=== PATIENT | female | born 1960 | race African-American/Black ===

== ENCOUNTER 2018-08-20 06:42 | Emergency (ER) | payer OTHER ==
[2018-08-20 07:13] VITALS: BP 145/85; PULSE 85; TEMP 98.4; BMI 38.2
[2018-08-20] MEDS ORDERED: IBUPROFEN 400 MG TABLET (FP) PO ONE ×2 (07:26→07:37)
--- NOTE | 2018-08-20 07:27 | PDOC ---
*Physical Exam - Vital Signs Last Vital Signs Temp Pulse Resp BP Pulse Ox 98.4 F 85 18 145/85 99 08/20/18 07:07 08/20/18 07:07 08/20/18 07:07 08/20/18 07:07 08/20/18 07:07 Medical Decision Making - Medical Decision Making 08/20/18 07:27 58 yo F presenting with wrist pain No swelling No erythema Able to move wrist, but with pain no systemic signs of illness Xray negative Wrist nunu wrapped D/c home Pt seen by Midlevel Provider under my direct supervision I agree with plan as outlined by Midlevel Provider 08/20/18 09:26 *DC/Admit/Observation/Transfer Diagnosis at time of Disposition: Wrist strain - Discharge Dispostion Disposition: HOME Condition at time of disposition: Stable - Prescriptions Prescriptions: Arm Brace [Wrist Brace] 1 each MC DAILY #1 each Naproxen 500 mg PO BID PRN #20 tablet PRN Reason: wrist pain - Referrals Referrals: Leighton Adkins MD [Primary Care Provider] - Lonnie Cheema MD [Staff Physician] - - Patient Instructions Printed Discharge Instructions: DI for Wrist Strain Additional Instructions: Your x-ray was normal. Take prescribed medication as needed for pain. Use prescribed wrist brace daily until symptoms resolve. Follow up with preferred orthopedics if symptoms persist - Post Discharge Activity Forms/Work/School Notes: Back to Work
--- NOTE | 2018-08-20 07:34 | PDOC ---
History of Present Illness - General Chief Complaint: Pain Stated Complaint: L WRIST PAIN Time Seen by Provider: 08/20/18 07:19 History Source: Patient Exam Limitations: Clinical Condition - History of Present Illness Initial Comments: 08/20/18 07:30 Patient with history of osteoarthritis present with complain of sudden onset of left wrist pain upon wake yesterday which has been worsening today. Patient reported taking Motrin yesterday for pain which improved pain but came back again this morning. Patient reported increased pain when she presses on radial side of wrist. Patient denies any trauma or injury to wrists Timing/Duration: 24 hours Past History - Past Medical History Allergies/Adverse Reactions: Allergies Allergy/AdvReac Type Severity Reaction Status Date / Time No Known Drug Allergies Allergy Verified 08/20/18 07:09 Home Medications: Ambulatory Orders Amlodipine Besylate [Norvasc -] 10 mg PO DAILY #20 08/09/12 Arm Brace [Wrist Brace] 1 each MC DAILY #1 each 08/20/18 Metformin HCl [Glucophage] 500 mg PO BID 08/20/18 Naproxen 500 mg PO BID PRN #20 tablet 08/20/18 Anemia: No Asthma: No Cancer: No Cardiac Disorders: No CVA: No COPD: No CHF: No Dementia: No Diabetes: No GI Disorders: No Disorders: No HTN: Yes Hypercholesterolemia: No Liver Disease: No Seizures: No Thyroid Disease: No - Surgical History Abdominal Surgery: No Appendectomy: No Cardiac Surgery: No Cholecystectomy: No Lung Surgery: No Neurologic Surgery: No Orthopedic Surgery: No - Suicide/Smoking/Psychosocial Hx Smoking Status: No Smoking History: Never smoked Number of Cigarettes Smoked Daily: 0 Information on smoking cessation initiated: No Hx Alcohol Use: No Drug/Substance Use Hx: No Substance Use Type: None Review of Systems - Review of Systems Able to Perform ROS?: Yes Is the patient limited Indonesian proficient: No Constitutional: No: Weakness Respiratory: No: Symptoms reported Cardiac (ROS): No: Symptoms Reported ABD/GI: No: Symptoms Reported Musculoskeletal: Yes: See HPI, Joint Pain (left wrist), Muscle Pain (radial side of left wrist). No: Joint Swelling, Muscle Weakness, Joint Stiffness All Other Systems: Reviewed and Negative *Physical Exam - Vital Signs Last Vital Signs Temp Pulse Resp BP Pulse Ox 98.4 F 85 18 145/85 99 08/20/18 07:07 08/20/18 07:07 08/20/18 07:07 08/20/18 07:07 08/20/18 07:07 - Physical Exam Comments: 08/20/18 07:32 GENERAL: Well developed, well nourished. Awake and alert. No acute distress. CARDIOVASCULAR: Regular rate and rhythm. No murmurs, rubs, or gallops. PULMONARY: No evidence of respiratory distress. Lungs clear to auscultation bilaterally. No wheezing, rales or rhonchi. ABDOMINAL: Soft. Non-tender. Non-distended. No rebound or guarding. No organomegaly. Normoactive bowel sounds MUSCULOSKELETAL : Moderate tenderness over radial plantar side of left wrist. No swelling to wrists. No bony deformities SKIN: Warm and dry. Normal capillary refill. No rashes. No jaundice. NEUROLOGICAL: Alert, awake, appropriate. No motor deficits in the lower extremities. Gait is normal without ataxia. PSYCHIATRIC: Cooperative. Good eye contact. Appropriate mood and affect. General Appearance: Yes: Nourished, Appropriately Dressed. No: Apparent Distress ED Treatment Course - RADIOLOGY Radiology Studies Ordered: Category Date Time Status WRIST W/HAND-LEFT* [RAD] Stat Radiology 08/20/18 07:25 Ordered Medical Decision Making - Medical Decision Making 08/20/18 07:33 Patient with history of osteoarthritis present with complain of sudden onset of left wrist pain starting yesterday and worsening today without trauma or injury. Exam significant for moderate tenderness to radial side of left wrist without swelling. Motrin 800 mg by mouth given for pain. X-ray of left wrist and hand ordered. Treat based on imaging results 08/20/18 07:56 x- ray of left wrist and hand shows no acute pathology. symptoms likely wrist strain. pt stable for discharge on NSAIDS and wrist brace with orthopedics follow-up *DC/Admit/Observation/Transfer Diagnosis at time of Disposition: Wrist strain Qualifiers: Encounter type: initial encounter Laterality: left Qualified Code(s): S66.912A - Strain of unspecified muscle, fascia and tendon at wrist and hand level, left hand, initial encounter - Discharge Dispostion Disposition: HOME Condition at time of disposition: Stable Decision to Admit order: No - Prescriptions Prescriptions: Arm Brace [Wrist Brace] 1 each MC DAILY #1 each Naproxen 500 mg PO BID PRN #20 tablet PRN Reason: wrist pain - Referrals Referrals: Leighton Adkins MD [Primary Care Provider] - Lonnie Cheema MD [Staff Physician] - - Patient Instructions Printed Discharge Instructions: DI for Wrist Strain Additional Instructions: Your x-ray was normal. Take prescribed medication as needed for pain. Use prescribed wrist brace daily until symptoms resolve. Follow up with preferred orthopedics if symptoms persist - Post Discharge Activity Forms/Work/School Notes: Back to Work
== END 2018-08-20 08:20 | disposition home or self-care (01) ==
LOC: JER 06:42
DX: S66.912A Strain of unspecified muscle, fascia and tendon at wrist and hand level, left hand, initial encounter (principal); X58.XXXA Exposure to other specified factors, initial encounter; Y93.89 Activity, other specified; Y92.9 Unspecified place or not applicable; M19.90 Unspecified osteoarthritis, unspecified site; I10 Essential (primary) hypertension
CPT/HCPCS: 73110-TC-LR-FY; 73130-TC-LR-FY; 99281-25

== ENCOUNTER 2018-10-30 21:08 | Emergency (ER) | payer OTHER ==
--- NOTE | 2018-10-30 21:14 | PDOC ---
Rapid Medical Evaluation Chief Complaint: Weakness Time Seen by Provider: 10/30/18 21:13 Medical Evaluation: Allergies Allergy/AdvReac Type Severity Reaction Status Date / Time No Known Drug Allergies Allergy Verified 08/20/18 07:09 10/30/18 21:14 I have performed a brief in-person evaluation of this patient. 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 Pertinent physical exam findings: No acute distress, clear lungs. I have ordered the following: Influenza The patient will proceed to the ED for further evaluation. Discharge Disposition - Referrals Referrals: Leighton Adkins MD [Primary Care Provider] - - Patient Instructions - Post Discharge Activity
[2018-10-30 21:17] VITALS: BP 151/76; PULSE 93; TEMP 98.3; BMI 38.2
--- NOTE | 2018-10-30 21:40 | PDOC ---
History of Present Illness - General Chief Complaint: Cold Symptoms Stated Complaint: WEAKNESS Time Seen by Provider: 10/30/18 21:13 History Source: Patient Exam Limitations: No Limitations - History of Present Illness Initial Comments: 10/30/18 22:51 Patient is a-year-old female who presents to the ER with 1 day of flulike symptoms. 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 She states that when she woke up this morning she felt that she felt bodyaches and rib pain. She states that it hurts to take a deep breath. Also discussed congestion. Denies fever, chills, nausea, vomiting, diarrhea, cough. Past History - Travel Traveled outside of the country in the last 30 days: No Close contact w/someone who was outside of country & ill: No - Past Medical History Allergies/Adverse Reactions: Allergies Allergy/AdvReac Type Severity Reaction Status Date / Time No Known Drug Allergies Allergy Verified 10/30/18 21:17 Home Medications: Ambulatory Orders RX: Amlodipine Besylate [Norvasc -] 10 mg PO DAILY #20 08/09/12 Metformin HCl [Glucophage] 500 mg PO BID 08/20/18 Acetaminophen [Tylenol -] 1,000 mg PO Q4H 10/30/18 Ibuprofen [Motrin -] 600 mg PO TID 10/30/18 RX: Ibuprofen 800 mg PO TID #30 tablet 10/30/18 Anemia: No Asthma: No Cancer: No Cardiac Disorders: No CVA: No COPD: No CHF: No Dementia: No Diabetes: Yes GI Disorders: No Disorders: No HTN: Yes Hypercholesterolemia: No Liver Disease: No Seizures: No Thyroid Disease: No - Surgical History Abdominal Surgery: No Appendectomy: No Cardiac Surgery: No Cholecystectomy: No Lung Surgery: No Neurologic Surgery: No Orthopedic Surgery: No - Suicide/Smoking/Psychosocial Hx Smoking Status: No Smoking History: Never smoked Have you smoked in the past 12 months: No Number of Cigarettes Smoked Daily: 0 Information on smoking cessation initiated: No Hx Alcohol Use: No Drug/Substance Use Hx: No Substance Use Type: None Review of Systems - Review of Systems Able to Perform ROS?: Yes Comments:: 10/30/18 21:40 CONSTITUTIONAL: Present: body aches Absent: fever, chills diaphoresis, generalized weakness, malaise, loss of appetite HEENT: Present: rhinorrhea, nasal congestion. Absent: throat pain difficulty swallowing , mouth swelling, ear pain, eye pain, visual Changes CARDIOVASCULAR: Absent: chest pain, loss of consciousness, palpitations, irregular heart rate, peripheral edema RESPIRATORY: Present: Cough/rib pain Absent: shortness of breath, dyspnea with exertion, orthopnea, wheezing, stridor, hemoptysis GASTROINTESTINAL: Absent: abdominal pain, abdominal distension, nausea, vomiting, diarrhea, constipation, melena, hematochezia SKIN: Absent: rash, itching, pallor NEUROLOGIC: Present: headache Absent: focal weakness or paresthesias, dizziness, unsteady gait, seizure, mental status changes, bladder or bowel incontinence Is the patient limited Amharic proficient: No *Physical Exam - Vital Signs Last Vital Signs Temp Pulse Resp BP Pulse Ox 98.3 F 93 H 18 151/76 98 10/30/18 21:14 10/30/18 21:14 10/30/18 21:14 10/30/18 21:14 10/30/18 21:14 - Physical Exam Comments: 10/30/18 21:40 GENERAL: Well developed, well nourished. Awake and alert. No acute distress. HEENT: Normocephalic, atraumatic. PERRLA, EOMI. No conjunctival pallor. Sclera are non- icteric. Moist mucous membranes. Oropharynx is clear. NECK: Supple. Full ROM. No JVD. Carotid pulses 2+ and symmetric, without bruits. No thyromegaly. No lymphadenopathy. CARDIOVASCULAR: Regular rate and rhythm. No murmurs, rubs, or gallops. Distal pulses are 2+ and symmetric. PULMONARY: No evidence of respiratory distress. Lungs with course lung sounds. No wheezing , rales or rhonchi. ABDOMINAL: Soft. Non-tender. Non-distended. No rebound or guarding. No organomegaly. Normoactive bowel sounds. MUSCULOSKELETAL Normal range of motion at all joints. No bony deformities or tenderness. No CVA tenderness. EXTREMITIES: No cyanosis. No clubbing. No edema. No calf tenderness. SKIN: Warm and dry. Normal capillary refill. No rashes. No jaundice. NEUROLOGICAL: Alert, awake, appropriate. Cranial nerves 2-12 intact. No deficits to light touch and temperature in face, upper extremities and lower extremities. No motor deficits in the in face, upper extremities and lower extremities. Normoreflexic in the upper and lower extremities. Normal speech. Toes are down- going bilaterally. Gait is normal without ataxia. PSYCHIATRIC: Cooperative. Good eye contact. Appropriate mood and affect. Moderate Sedation - Procedure Monitoring Vital Signs: Procedure Monitoring Vital Signs Temperature 98.3 F 10/30/18 21:14 Pulse Rate 93 H 10/30/18 21:14 Respiratory Rate 18 10/30/18 21:14 Blood Pressure 151/76 10/30/18 21:14 O2 Sat by Pulse Oximetry (%) 98 10/30/18 21:14 Medical Decision Making - Medical Decision Making 10/30/18 22:51 Patient is a 58-year-old female who presents to the ER for one day of body aches and difficulty taking a deep breath. Rapid flu and rapid strep are negative from E. Patient given one DuoNeb and prednisone she had coarse lung sounds on exam. Patient feels better after medication. Repeat lung sounds clear We'll discharge home. Most likely a URI. I discussed the physical exam findings, ancillary test results and final diagnoses with the patient. I answered all of the patient's questions. The patient was satisfied with the care received and felt comfortable with the discharge plan and treatment plan. The Patient agrees to follow up with the primary care physician/specialist within 24-72 hours. Return precautions were given. *DC/Admit/Observation/Transfer Diagnosis at time of Disposition: URI (upper respiratory infection) Qualifiers: URI type: unspecified URI Qualified Code(s): J06.9 - Acute upper respiratory infection, unspecified - Discharge Dispostion Disposition: HOME Condition at time of disposition: Stable Decision to Admit order: No - Prescriptions Prescriptions: RX: Ibuprofen 800 mg PO TID #30 tablet - Referrals Referrals: Leighton Adkins MD [Primary Care Provider] - - Patient Instructions Printed Discharge Instructions: DI for Viral Upper Respiratory Infection -- Adult Additional Instructions: You have an upper respiratory infection, or the common cold. Your flu testing was negative today. Please take Motrin 800 mg every 8 hours as needed for pain not to exceed 3000 mg a day. Drink plenty of fluids. Cough drops and warm tea may help your symptoms as well. Please follow up with her primary care doctor this week. Return to the emergency department if you have difficulty breathing, shortness of breath, worsening pain, nausea, vomiting or if you have any changes in your symptoms. - Post Discharge Activity
[2018-10-30] MEDS ORDERED: ALBUTEROL SO4 2.5/IPRATROPIUM 0.5 INH SOL 3 ML VIAL.NEB. NEB ONE ×2 (21:52→21:55)
[2018-10-30] MEDS ORDERED: DEXAMETHASONE LIQUID 0.5 MG/5 ML 240 ML BULK BOTTLE PO ONE (21:52)
[2018-10-30] MEDS ORDERED: DEXAMETHASONE SOD PHOSPHATE 10 MG/1 ML VIAL ONE (21:55)
== END 2018-10-30 22:51 | disposition home or self-care (01) ==
LOC: JERFT 21:08
PROC: 3E0F7GC Introduction of Other Therapeutic Substance into Respiratory Tract, Via Natural or Artificial Opening (ICD-10-PCS; principal; 2018-10-30)
DX: J06.9 Acute upper respiratory infection, unspecified (principal); I10 Essential (primary) hypertension; E11.9 Type 2 diabetes mellitus without complications; Z79.84 Long term (current) use of oral hypoglycemic drugs
CPT/HCPCS: 87804; 99281-25

== ENCOUNTER 2020-11-28 05:50 | Emergency (ER) | payer OTHER ==
[2020-11-28 07:39] VITALS: BP 173/95; PULSE 80; TEMP 99.3; BMI 37.8
== END 2020-11-28 09:07 | disposition home or self-care (01) ==
LOC: JER 05:50
DX: M25.532 Pain in left wrist (principal); S66.912A Strain of unspecified muscle, fascia and tendon at wrist and hand level, left hand, initial encounter
CPT/HCPCS: 73090-TC-LT-FY; 73110-TC-LT-FY; 73130-TC-LT-FY; 93971; 99285-25

== ENCOUNTER 2021-05-09 07:51 | Emergency (ER) | payer OTHER ==
[2021-05-09 08:06] VITALS: BP 127/84; PULSE 84; TEMP 98.2; BMI 39.9
[2021-05-09] MEDS ORDERED: KETOROLAC TROMETHAMINE 30 MG/1 ML VIAL IM ONE (08:32)
[2021-05-09] MEDS ORDERED: METHOCARBAMOL 500 MG TABLET PO ONE (08:33)
[2021-05-09] MEDS ORDERED: KETOROLAC TROMETHAMINE 30 MG/1 ML VIAL ONE (08:44)
[2021-05-09] MEDS ORDERED: METHOCARBAMOL 500 MG TABLET ONE (08:44)
[2021-05-09 09:34] LABS: BASO % 0.3 % (0-2.0); EOS % 2.9 % (0-4.5); HEMATOCRIT 37.6 % (32.4-45.2); HEMOGLOBIN 12.2 GM/dL (10.7-15.3); LYMPH % 34.5 % (8-40); MCH 27.1 pg (25.7-33.7); MCHC 32.5 g/dl (32.0-36.0); MEAN CELL VOLUME 83.3 fl (80-96); MEAN PLT VOLUME 9.1 fl (7.5-11.1); MONO % 8.7 % (3.8-10.2); NEUT % 53.6 % (42.8-82.8); PLATELET COUNT 238 10^3/uL (134-434); RBC 4.51 M/mm3 (3.60-5.2); WHITE BLOOD COUNT 7.3 K/mm3 (4.0-10.0)
[2021-05-09 09:56] LABS: CHLORIDE 105 mmol/L (98-107); SODIUM 139 mmol/L (136-145)
[2021-05-09 09:58] LABS: CALCIUM 9.1 mg/dL (8.5-10.1)
[2021-05-09 09:59] LABS: ALBUMIN 3.4 g/dl (3.4-5.0); ANION GAP 7 MMOL/L (8-16); CO2 27 mmol/L (21-32); GLUCOSE,RANDOM 152 mg/dL (74-106)
[2021-05-09 10:02] LABS: CREATININE 0.6 mg/dL (0.55-1.3); SGOT/AST 13 U/L (15-37); SGPT/ALT 26 U/L (13-61)
[2021-05-09 10:03] LABS: BILIRUBIN,TOTAL 0.3 mg/dL (0.2-1)
[2021-05-09 10:04] LABS: TOT PROT 7.4 g/dl (6.4-8.2)
[2021-05-09 10:05] LABS: ALK PHOS 118 U/L (45-117)
== END 2021-05-09 10:37 | disposition home or self-care (01) ==
LOC: JER 07:51
PROC: 3E0233Z Introduction of Anti-inflammatory into Muscle, Percutaneous Approach (ICD-10-PCS; principal; 2021-05-09)
DX: M54.6 Pain in thoracic spine (principal)
CPT/HCPCS: 36415; 71046-TC-FY; 80053; 84484; 85025; 93005; 93010; 99285-25

== ENCOUNTER 2022-07-21 23:14 | Emergency (ER) | payer OTHER ==
[2022-07-21 23:25] VITALS: BP 167/81; PULSE 84; RESP 20; TEMP 97.8; BMI 43.2
[2022-07-21] MEDS ORDERED: LIDOCAINE 5% TOPICAL PATCH TP ONE (23:46)
[2022-07-21] MEDS ORDERED: LIDOCAINE 5% TOPICAL PATCH ONE (23:54)
[2022-07-22] MEDS ORDERED: LIDOCAINE PATCH REMOVAL MC ONE (12:00)
== END 2022-07-22 02:10 | disposition home or self-care (01) ==
LOC: JER 23:14
DX: M25.512 Pain in left shoulder (principal); W01.0XXA Fall on same level from slipping, tripping and stumbling without subsequent striking against object, initial encounter
CPT/HCPCS: 73030-TC-LT-FY; 99283-25

== ENCOUNTER 2024-01-10 07:44 | Emergency (ER) | payer OTHER ==
[2024-01-10 07:59] VITALS: BP 133/78; PULSE 89; RESP 18; TEMP 98.4; BMI 37.3
[2024-01-10] MEDS ORDERED: LIDOCAINE 4% PATCH TP ONE (08:35)
[2024-01-10] MEDS ORDERED: KETOROLAC TROMETHAMINE 15 MG/ML VIAL ONE (08:36)
[2024-01-10] MEDS ORDERED: ACETAMINOPHEN 500 MG TABLET (FP) ONE (08:36)
[2024-01-10] MEDS: KETOROLAC TROMETHAMINE 15 MG/ML VIAL IM ONE (08:43)
[2024-01-10] MEDS: LIDOCAINE 4% PATCH TP ONE (08:43)
[2024-01-10] MEDS: ACETAMINOPHEN 500 MG TABLET (FP) PO ONE (08:44)
[2024-01-10] MEDS ORDERED: LIDOCAINE PATCH REMOVAL MC SCH (22:00)
== END 2024-01-10 09:10 | disposition home or self-care (01) ==
LOC: JER 07:44 → JERFT 07:44
PROC: 3E0233Z Introduction of Anti-inflammatory into Muscle, Percutaneous Approach (ICD-10-PCS; principal; 2024-01-10)
DX: M25.511 Pain in right shoulder (principal); M25.561 Pain in right knee; M25.562 Pain in left knee
CPT/HCPCS: 99284-25

== ENCOUNTER 2024-02-01 12:00 | Emergency (ER) | payer OTHER ==
[2024-02-01 12:08] VITALS: RESP 18; TEMP 98.6; BMI 37.8
[2024-02-01] MEDS ORDERED: ACETAMINOPHEN 325 MG TABLET (FP) ONE (12:48)
[2024-02-01 12:50] LABS: BASO % 0.1 % (0-2.0); EOS % 1.6 % (0-4.5); HEMATOCRIT 39.7 % (32.4-45.2); LYMPH % 24.4 % (8-40); MCH 27.5 pg (25.7-33.7); MCHC 32.7 g/dl (32.0-36.0); MEAN PLT VOLUME 8.1 fl (7.5-11.1); MONO % 9.1 % (3.8-10.2); NEUT % 64.8 % (42.8-82.8); PLATELET COUNT 263 10^3/uL (134-434); RBC 4.73 M/mm3 (3.60-5.2); RDW 14.2 % (11.6-15.6); WHITE BLOOD COUNT 7.8 K/mm3 (4.0-10.0)
[2024-02-01] MEDS: ACETAMINOPHEN 325 MG TABLET (FP) PO ONE (12:52)
[2024-02-01] MEDS: ACETAMINOPHEN 1000 MG/100 ML BAG IVPB ONE (12:55)
[2024-02-01 13:00] LABS: INR 1.05 (0.83-1.09); PROTHROMBIN TIME (PATIENT) 12.2 SEC (9.7-13.0)
[2024-02-01 13:04] LABS: ACTIVATED PTT 35.6 SECONDS (25.2-36.5)
[2024-02-01 13:13] LABS: POTASSIUM 4.2 mmol/L (3.5-5.1)
[2024-02-01 13:15] LABS: CALCIUM 9.7 mg/dL (8.5-10.1)
[2024-02-01 13:16] LABS: ALBUMIN 3.3 g/dl (3.4-5.0); BLOOD UREA NITROGEN 9.9 mg/dL (7-18)
[2024-02-01 13:19] LABS: BILIRUBIN,TOTAL 0.4 mg/dL (0.2-1); CREATININE 0.7 mg/dL (0.55-1.3); TOT PROT 7.4 g/dl (6.4-8.2)
[2024-02-01 13:57] VITALS: BP 140/84; PULSE 80
== END 2024-02-01 13:57 | disposition home or self-care (01) ==
LOC: JER 12:00
DX: R07.89 Other chest pain (principal)
CPT/HCPCS: 36415; 71046-TC-FY; 80053; 84484; 85025; 85610; 85730; 86850; 86900; 86901; 93005; 93010; 99285-25